=== PATIENT | male | born 2005 | race Caucasian/White ===

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

== ENCOUNTER → 2024-10-04 14:03 | Outpatient (BNVA) | payer BC, SELFPAY | PROVIDERS: Visit Provider Nurse Practitioner Family | DX: N50.819 Testicular pain, unspecified (principal) | CPT/HCPCS: 81000; 87491; 87591; 87661 ==

== ENCOUNTER 2024-11-17 13:46 | Outpatient (CLI) | payer BC, SELFPAY ==
--- NOTE | 2024-11-17 14:15 | US_ITS ---
WS: [id number] TESTICULAR ULTRASOUND HISTORY: Testicular pain COMPARISON: None available. TECHNIQUE: Real-time and color Doppler imaging or utilized to perform a testicular ultrasound. Right testicle: 4.0 cm x 2.6 cm x 2.4 cm. Normal size and echogenicity. No mass or torsion. Normal color Doppler is present throughout. Systolic and diastolic velocities are both present. No significant hydrocele. Right epididymis: Normal epididymis with no increased vascularity. Left testicle: 4.5 cm x 2.8 cm x 2.4 cm. Normal size and echogenicity. No mass or torsion. Increased vascularity within the LEFT testicle as compared to the RIGHT testicle. There is no mass. No significant hydrocele. Left epididymis: Normal epididymis with no increased vascularity. US/US scrotum [id number] IMPRESSION: 1. Mild acute LEFT orchitis. 2. No testicular mass or torsion.
== END 2024-11-17 13:47 | disposition home or self-care (01) ==
LOC: RAD 13:54
PROVIDERS: PCP Nurse Practitioner Family; Visit Provider Nurse Practitioner Family
DX: N50.811 Right testicular pain (principal); N45.2 Orchitis
CPT/HCPCS: 76870

== ENCOUNTER 2025-01-16 14:48 | Emergency (ER) | payer BC, SELFPAY ==
--- NOTE | 2025-01-16 14:51 | ECG_ITS ---
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
--- NOTE | 2025-01-16 14:51 | XRR_ITS ---
PROCEDURE INFORMATION: Exam: XR Chest Exam date and time: 01/16/2025 2:56 PM Age: 19 years old Clinical indication: Pain; Angina pectoris; Additional info: Cp TECHNIQUE: Imaging protocol: Radiologic exam of the chest. Views: 1 view. COMPARISON: CR XR chest 2V* [id number] 05/15/2023 11:47 AM FINDINGS: Lungs: Unremarkable. No consolidation. Pleural spaces: Unremarkable. No pleural effusion. No pneumothorax. Heart/Mediastinum: Unremarkable. No cardiomegaly. Bones/joints: Unremarkable. XR/XR chest 1V portable [id number] IMPRESSION: No acute findings.
--- NOTE | 2025-01-16 14:55 | ED_ITS ---
HPI - Chest Pain 2 General: Chief Complaint: Anxiety Stated Complaint: cp, numbness in arms Time Seen by Provider: 01/16/25 14:51 Source: patient Mode of arrival: ambulatory Limitations: no limitations History of Present Illness: 19-year-old male states over the last 3 days been having some intermittent chest pain states that it has been a sharp pain that comes and goes seems to be worse with eating at times he denies any cough or fever. No history of heart disease no recent trips. He states he has been feeling quite anxious as well Associated symptoms: Deny abdominal pain, dyspnea, fever(s), nausea or vomiting Related Data Home Medications ?Medication ?Instructions ?Recorded ?Confirmed naproxen 500 mg tablet 500 mg PO Q12H 01/16/2512/19 Allergies Allergy/AdvReac Type Severity Reaction Status Date / Time No Known Allergies Allergy Verified 01/16/25 15:03 Review of Systems 2 Const: Denies: fever(s), chills, body aches or change in appetite ENMT: Denies: throat pain or dental pain Card: Reports: chest pain Resp: Denies: dyspnea GI: Denies: abdominal pain, nausea, vomiting or diarrhea : Denies: dysuria Musc: Denies: neck pain or back pain Skin/Breast: Denies: rash Neuro: Denies: headache(s) Psych: Reports: anxiety PFSH ED 2 PFSH: Family History Father Diabetes Hypertension Social History Smoking and tobacco/nicotine status: tobacco/nicotine user, details unknown Second hand smoke exposure: No Alcohol intake: never Substance/Drug Use: never Adopted: No Caregiver/support person: No Highest education level completed: High School Graduate Current occupational status: employed Current occupation: [employer] Current occupational exposures/hazards: No Pets and animals: No Do you think of yourself as: Straight/Heterosexual Current gender identity: Male Physical Exam 2 Const: COMMON NORMALS: no acute distress, patient oriented x3 and healthy appearing HENMT: COMMON NORMALS: normocephalic and atraumatic HEAD & SCALP: n ormocephalic and atraumatic Eye: COMMON NORMALS: conjunctivae normal CONJUNCTIVA: Yes conjunctivae normal Neck/C-Spine: COMMON NORMALS: full ROM and supple Chest: COMMONS NORMALS: normal inspection of the chest and normal palpation of entire chest wall Resp: COMMON NORMALS: normal respiratory effort, No retractions, No use of accessory muscles and clear to auscultation bilaterally AUSCULTATION: clear to auscultation bilaterally Cardio: COMMON NORMALS: regular rate, regular rhythm and No murmurs present (Cardio) RATE: regular rate RHYTHM: regular rhythm GI: COMMON NORMALS: Normal to inspection, nondistended, normoactive bowel sounds present, Soft to palpation, non-tender and no masses PALPATION: Yes Soft to palpation Extremity: COMMON NORMALS: normal to inspection and full ROM Neuro: COMMON NORMALS: patient oriented x3, moves all extremities and no focal motor deficits Psych: COMMON NORMALS: mental status grossly normal, Normal thought process present and cooperative THOUGHT PROCESS: Normal thought process present Skin: COMMON NORMALS: no rashes or lesions noted and no wounds GENERAL SKIN EXAM: no rashes or lesions noted Course 2 Vital Signs: Vital signs: Vital Signs Temperature 98.9 F 01/16/25 15:00 Pulse Rate 88 01/16/25 15:00 Respiratory Rate 18 01/16/25 15:00 Blood Pressure 160/80 01/16/25 15:00 Pulse Oximetry 97 01/16/25 15:00 Oxygen Delivery Me thod Room Air 01/16/25 15:00 MDM - Chest Pain Medical Decision Making Patient presents for chest pain is atypical in nature is likely more anxiety feels much improved after Ativan his troponin blood works normal no signs of ACS no signs of pulmonary embolism or dissection he is a follow-up with PCP return if worsening. Medical Records I reviewed the patient's medical records. Lab Data I reviewed the patient's lab results. 01/16/25 15:22 01/16/25 15:22 Radiology Impressions Chest X-Ray 01/16/25 14:51 IMPRESSION: No acute findings. Laboratory Results WBC 8.48 10^3/uL (4.5-13.0) 01/16/25 15:22 RBC 5.40 10^6/uL (3.85-5.65) 01/16/25 15:22 Hgb 15.70 g/dL (13.2-15.6) H 01/16/25 15:22 Hct 44.2 % (37-53) 01/16/25 15:22 MCV 81.9 fl (82-101) L 01/16/25 15:22 MCH 29.1 pg (27-33) 01/16/25 15:22 MCHC 35.5 g/dL (30-55) 01/16/25 15:22 RDW 11.4 % (12.1-15.1) L 01/16/25 15:22 Plt Count 264 10^3/cmm (157-399) 01/16/25 15:22 MPV 10.3 fL (7.4-10.4) 01/16/25 15:22 Neut % (Auto) 62.3 % 01/16/25 15:22 Lymph % (Auto) 29.4 % 01/16/25 15:22 [place] % (Auto) 7.3 % 01/16/25 15:22 Eos % (Auto) 0.2 % 01/16/25 15:22 Baso % (Auto) 0.4 % 01/16/25 15:22 Neut # (Auto) 5.29 10^3/uL (1.8-8.0) 01/16/25 15:22 Lymph # (Auto) 2.5 10^3/uL (1.5-6.5) 01/16/25 15:22 [place] # (Auto) 0.6 10^3/uL (0.2-0.9) 01/16/25 15:22 Eos # (Auto) 0.0 10^3/uL (0.0-0.8) 01/16/25 15:22 Baso # (Auto) 0.0 10^3/uL (0.0-0.1) 01/16/25 15:22 Nucleated RBC % (auto) 0 % 01/16/25 15:22 Nucleated RBCs # 0.0 /100WBC 01/16/25 15:22 Sodium 143 mmol/L (136-145) 01/16/25 15:22 Potassium 4.1 mmol/L (3.5-5.1) 01/16/25 15:22 Chloride 107 mmol/L (98-107) 01/16/25 15:22 Carbon Dioxide 23 mmol/L (22-29) 01/16/25 15:22 Anion Gap 17.1 (5-19) 01/16/25 15:22 BUN 12 mg/dL (6-20) 01/16/25 15:22 Creatinine 0.8 mg/dL (0.7-1.2) 01/16/25 15:22 GFR Calculation 123.2 mL/min (90-130) 01/16/25 15:22 Glucose 92 mg/dL (65-115) 01/16/25 15:22 Calculated Osmolality 295 mOsm/kg (285-295) 01/16/25 15:22 Calcium 9.4 mg/dL (8.5-10.5) 01/16/25 15:22 Total Bilirubin 1.8 mg/dL (0.15-1.2) H 01/16/25 15:22 AST 16 U/L (0-40) 01/16/25 15:22 ALT 19 U/L (0-41) 01/16/25 15:22 Alkaline Phosphatase 94 U/L (40-130) 01/16/25 15:22 Troponin T Baseline 9 ng/L (0-15) 01/16/25 15:22 Total Protein 7.3 g/dL (6.6-8.7) 01/16/25 15:22 Albumin 4.6 g/dL (3.5-5.2) 01/16/25 15:22 Globulin 2.7 g/dL (1.3-4.6) 01/16/25 15:22 Lipase 17 U/L (13-60) 01/16/25 15:22 All radiology interpretation(s) finalized by discharge EKG Data EKG 1: I personally reviewed and interpreted this EKG as follows: EKG interpretation date: 01/16/25 EKG interpretation time: 14:51 Interpretation: nsr hr [address] elevation qrs 94 qtc 378 Discharge Plan Discharge Patient Disposition: Home Clinical Impression: Chest pain Condition: Stable Prescriptions: No Action naproxen 500 mg tablet 500 mg PO Q12H Discharge Orders: Discharge ED (Routine); Ordered 01/16/25 Ordered By: Kaiser Gao Referrals: Irais Joshi FNP-C [Primary Care Provider] - 4-7 days Discharge Diet: Advance as tolerated Discharge Activity: Resume usual activity Patient Instructions: Chest Pain (ED) Print Language: Kazakh Coding Level of Care Code ED Electronic Maintenance Supervisor for Chg Mary
[2025-01-16 15:00] VITALS: BP 160/80; PULSE 88; RESP 18; TEMP 37.2; O2SAT 97; BMI 40.6
[2025-01-16 15:32] LABS: Basophils % 0.4 %; Eosinophils % 0.2 %; Hematocrit 44.2 % (37-53); Lymphocytes # 2.5 10^3/uL (1.5-6.5); Lymphocytes % 29.4 %; Mean Corpuscular HGB Conc 35.5 g/dL (30-55); Mean Corpuscular Hemoglobin 29.1 pg (27-33); Mean Corpuscular Volume 81.9 fl (82-101); Mean Platelet Volume 10.3 fL (7.4-10.4); Monocytes # 0.6 10^3/uL (0.2-0.9); Monocytes % 7.3 %; Neutrophils # 5.29 10^3/uL (1.8-8.0); Neutrophils % 62.3 %; Nucleated Red Blood Cells % 0 %; Platelet Count 264 10^3/cmm (157-399); Red Cell Distribution Width 11.4 % (12.1-15.1); White Blood Count 8.48 10^3/uL (4.5-13.0)
[2025-01-16] MEDS: LORazepam 2 mg/mL INJ 1 mL 0.5 MG IVP (15:34)
[2025-01-16 15:56] LABS: Alanine Aminotransferase 19 U/L (0-41); Albumin Level 4.6 g/dL (3.5-5.2); Alkaline Phosphatase 94 U/L (40-130); Anion Gap 17.1 (5-19); Aspartate Amino Transferase 16 U/L (0-40); Blood Urea Nitrogen 12 mg/dL (6-20); Calcium 9.4 mg/dL (8.5-10.5); Carbon Dioxide 23 mmol/L (22-29); Chloride 107 mmol/L (98-107); Globulin 2.7 g/dL (1.3-4.6); Glomerular Filtration Rate 123.2 mL/min (90-130); Glucose 92 mg/dL (65-115); Lipase 17 U/L (13-60); Osmolality Calculated 295 mOsm/kg (285-295); Potassium 4.1 mmol/L (3.5-5.1); Sodium 143 mmol/L (136-145); Total Bilirubin 1.8 mg/dL (0.15-1.2); Total Protein 7.3 g/dL (6.6-8.7)
[2025-01-16 16:01] LABS: Troponin(5th) Baseline 9 ng/L (0-15)
[2025-01-16 16:19] VITALS: BP 129/78; PULSE 78; RESP 16; O2SAT 98
== END 2025-01-16 16:15 | disposition home or self-care (01) ==
PROVIDERS: Emergency Provider Emergency Medicine; PCP Nurse Practitioner Family
DX: R07.9 Chest pain, unspecified (principal)
CPT/HCPCS: 36415; 71045; 80053; 83690; 84484; 85025; 93005; 96374; 99285; J2060

== ENCOUNTER → 2025-02-15 14:24 | Outpatient (BNVA) | payer BC, SELFPAY | PROVIDERS: PCP Nurse Practitioner Family; Visit Provider Nurse Practitioner Family | DX: K56.41 Fecal impaction (principal) | CPT/HCPCS: 74018; 80053; 81000; 85025 ==

== ENCOUNTER → 2025-02-16 10:48 | Outpatient (BNVA) | payer BC, SELFPAY | PROVIDERS: PCP Nurse Practitioner Family; Visit Provider Nurse Practitioner Family | DX: N39.0 Urinary tract infection, site not specified (principal) | CPT/HCPCS: 87086 ==

== ENCOUNTER 2025-03-28 10:31 | Outpatient (CLI) | payer BC, SELFPAY ==
--- NOTE | 2025-03-28 10:30 | US_ITS ---
WS: [id number] ULTRASOUND SOFT TISSUES RIGHT neck. HISTORY: R22.1 - Localized swelling, mass and lump, neck COMPARISON: None available. TECHNIQUE: 2-D and color Doppler imaging is submitted. Palpable area along the RIGHT cervical chain closely associated with the submandibular gland. Palpable area corresponds to a lymph node measuring 1.1 x 0.4 x 0.9 cm. Mild increased vascularity is normal. Only a single lymph node is identified. US/US soft tissue head neck [id number] IMPRESSION: Normal-appearing RIGHT cervical chain lymph node.
== END 2025-03-28 10:32 | disposition home or self-care (01) ==
LOC: RAD 10:32
PROVIDERS: PCP Nurse Practitioner Family; Visit Provider Nurse Practitioner Family
DX: R22.1 Localized swelling, mass and lump, neck (principal)
CPT/HCPCS: 76536

== ENCOUNTER 2025-04-26 08:35 | Outpatient (CLI) | payer BC, SELFPAY ==
--- NOTE | 2025-04-26 08:40 | US_ITS ---
WS: [id number] Exam: US scrotum [id number] Date/Time of Exam: 04/26/2025 8:48 AM Reason For Exam: R TESTICULAR PAIN Comparison 11/17/2024. The testicles demonstrate normal echotexture without mass or nodule. The testicles demonstrate normal vascularity when evaluated with color flow Doppler. No hydrocele or varicocele. No epididymal abnormalities were seen. No scrotal wall abnormalities. The RIGHT testicle measures 4.3 x 2.3 x 3.1 cm. The LEFT testicle measures 4.7 x 2.5 x 2.6 cm. US/US scrotum [id number] IMPRESSION: 1. No indication of testicular torsion, mass or other significant finding.
== END 2025-04-26 08:36 | disposition home or self-care (01) ==
PROVIDERS: PCP Nurse Practitioner Family; Visit Provider Nurse Practitioner Family
DX: N50.811 Right testicular pain (principal)
CPT/HCPCS: 76870

== ENCOUNTER 2025-05-01 15:30 | Outpatient (CLI) | payer BC, SELFPAY ==
--- NOTE | 2025-05-01 15:45 | US_ITS ---
WS: [id number] ULTRASOUND BREAST BILATERAL AND BILATERAL AXILLA. TECHNIQUE: Ultrasound bilateral breast focused area of concern. CLINICAL INFORMATION: N64.4 - Mastodynia COMPARISON: None. FINDINGS: RIGHT BREAST: Ultrasound RIGHT breast 12 o'clock position area of concern. Normal underlying parenchymal tissue. No suspicious cystic or solid lesions in this area. LEFT BREAST: Ultrasound LEFT breast at the 12 o'clock position demonstrates no suspicious abnormalities. Bilateral axillary ultrasound is normal. No suspicious lesions. No enlarged lymph nodes visualized. US/US breast BI limited* [id number] IMPRESSION: No suspicious findings. BI-RADS 2 benign
== END 2025-05-01 15:31 | disposition home or self-care (01) ==
LOC: RAD 15:31
PROVIDERS: PCP Nurse Practitioner Family; Visit Provider Nurse Practitioner Family
DX: N64.4 Mastodynia (principal)
CPT/HCPCS: 76642

== ENCOUNTER → 2025-05-18 11:31 | Outpatient (BNVA) | payer BC, SELFPAY | PROVIDERS: PCP Nurse Practitioner Family; Visit Provider Nurse Practitioner Family | DX: N64.4 Mastodynia (principal); M79.629 Pain in unspecified upper arm; N50.819 Testicular pain, unspecified | CPT/HCPCS: 83001; 83002; 84146; 84403 ==

== ENCOUNTER → 2025-08-16 11:37 | Outpatient (BNVA) | payer BC, SELFPAY | PROVIDERS: PCP Nurse Practitioner Family; Visit Provider Nurse Practitioner Family | DX: N64.4 Mastodynia (principal); M79.629 Pain in unspecified upper arm; G89.29 Other chronic pain; R22.2 Localized swelling, mass and lump, trunk | CPT/HCPCS: 71046 ==